=== PATIENT | female | born 1965 | race Caucasian/White ===

== ENCOUNTER → 2017-09-13 | Outpatient (CLI) | payer BC ==
--- NOTE | 2017-09-14 10:44 | MM ---
Reason for exam: screening (asymptomatic). Last mammogram was performed 2 years and 2 months ago. History: Patient is postmenopausal. Family history of breast cancer in aunt at age 60. Taking hormonal contraceptives for 20 years beginning at age 20. Physical Findings: A clinical breast exam by your physician is recommended on an annual basis and results should be correlated with mammographic findings. MG 3D Screening Mammo W/Cad Bilateral CC and MLO view(s) were taken. Prior study comparison: July 23, 2015, bilateral MG screening mammo w CAD. December 22, 2011, bilateral digital screening mammo w/CAD. There are scattered fibroglandular densities. There is no discrete abnormality. No significant changes when compared with prior studies. ASSESSMENT: Negative, BI-RAD 1 RECOMMENDATION: Routine screening mammogram of both breasts in 1 year.
== END | disposition home or self-care (01) ==
LOC: RADMAMWWP 08:19
PROVIDERS: ATTEND Obstetrics & Gynecology Obstetrics
DX: Z12.31 Encounter for screening mammogram for malignant neoplasm of breast (principal)
CPT/HCPCS: 77063; 77067

== ENCOUNTER → 2020-01-30 | Outpatient (CLI) | payer OTHER | END | disposition home or self-care (01) | LOC: LABWHC1 08:51 | PROVIDERS: ATTEND Obstetrics & Gynecology | DX: Z03.818 Encounter for observation for suspected exposure to other biological agents ruled out (principal); U07.1 COVID-19 ==

== ENCOUNTER → 2020-11-24 | Outpatient (CLI) | payer OTHER ==
--- NOTE | 2020-11-25 09:21 | MM ---
Reason for exam: screening (asymptomatic). Last mammogram was performed 3 years and 2 months ago. History: Patient is postmenopausal. Family history of breast cancer in aunt at age 60. Taking hormonal contraceptives for 20 years beginning at age 20. Physical Findings: A clinical breast exam by your physician is recommended on an annual basis and results should be correlated with mammographic findings. MG 3D Screening Mammo W/Cad Bilateral CC and MLO view(s) were taken. Prior study comparison: September 13, 2017, bilateral MG 3d screening mammo w/cad. July 23, 2015, bilateral MG screening mammo w CAD. There are scattered fibroglandular densities. There is no discrete abnormality. No significant changes when compared with prior studies. ASSESSMENT: Negative, BI-RAD 1 RECOMMENDATION: Routine screening mammogram of both breasts in 1 year.
== END | disposition home or self-care (01) ==
LOC: RADMAMWWP 08:29
PROVIDERS: ATTEND Obstetrics & Gynecology
DX: Z12.31 Encounter for screening mammogram for malignant neoplasm of breast (principal); Z78.0 Asymptomatic menopausal state; Z80.3 Family history of malignant neoplasm of breast
CPT/HCPCS: 77063; 77067

== ENCOUNTER 2021-01-08 08:19 | Day surgery (SDC) | payer OTHER ==
[2021-01-06 09:27] VITALS: BMI 35.9
[~2021-01-08 08:19] MED LIST: LACTATED RINGERS 1,000 ML IV SCH
[2021-01-08 08:43] VITALS: RESP 16; TEMP 99
[2021-01-08] MEDS ORDERED: LIDOCAINE 1% (10MG/ML) FOR IV START INTRADERMA ONE (08:52)
[2021-01-08] MEDS ORDERED: PROPOFOL 10 MG/ML 20 ML VIAL IV ONE (08:59)
--- NOTE | 2021-01-08 09:28 | P.PCN ---
Date of Procedure: 01/08/21 Procedure(s) Performed: BRIEF HISTORY: Patient is a 55-year-old pleasant white female scheduled for an elective colonoscopy as a part of screening for colorectal neoplasia. PROCEDURE PERFORMED: Colonoscopy. PREOPERATIVE DIAGNOSIS: Screening for colon cancer. IV sedation per Anesthesia. PROCEDURE: After informed consent was obtained, the patient, was brought into the endoscopy unit. IV sedation was administered by Anesthesia under continuous monitoring. Digital rectal examination was normal. Initially the Olympus CF-160 flexible video colonoscope was then inserted in the rectum, gradually advanced into the cecum without any difficulty. Careful examination was performed as the scope was gradually being withdrawn. Ileocecal valve and the appendiceal orifice were visualized and appeared normal. Prep was fair.. Mucosa of the cecum, ascending colon, transverse colon, descending colon, sigmoid colon, and rectum appeared normal. Scattered sigmoid diverticulosis. Retroflexion was performed in the rectum and no lesions were seen. The patient tolerated the procedure well. IMPRESSION: Normal-appearing colon from rectum to cecum with no evidence of colorectal neoplasia . Scattered sigmoid diverticulosis . RECOMMENDATIONS: Findings of this examination were discussed with the patient a s well as a family. She was advised to have a repeat screening colonoscopy in 10 years.
[2021-01-08 09:49] VITALS: BP 143/69; PULSE 84
== END 2021-01-08 10:02 | disposition home or self-care (01) ==
LOC: ORWHC2ENDO 08:19
PROVIDERS: ATTEND Internal Medicine Gastroenterology
DX: Z12.11 Encounter for screening for malignant neoplasm of colon (principal); K57.30 Diverticulosis of large intestine without perforation or abscess without bleeding; I10 Essential (primary) hypertension; E78.5 Hyperlipidemia, unspecified; Z79.82 Long term (current) use of aspirin; Z79.899 Other long term (current) drug therapy
CPT/HCPCS: J2704; G0121

== ENCOUNTER → 2022-01-12 | Outpatient (CLI) | payer OTHER | END | disposition home or self-care (01) | LOC: LABWHC1 09:13 | PROVIDERS: ATTEND Obstetrics & Gynecology | DX: Z20.822 Contact with and (suspected) exposure to COVID-19 (principal) | CPT/HCPCS: U0003; C9803 ==

== ENCOUNTER → 2022-03-01 | Outpatient (CLI) | payer OTHER ==
--- NOTE | 2022-03-02 07:56 | MM ---
Reason for Exam: Screening (asymptomatic). Last mammogram was performed 1 year(s) and 3 month(s) ago. Patient History: Menarche at age 15. First Full-Term at age 29. Postmenopausal. Hormonal Contraceptives, starting at age 20 for 20 years. Maternal aunt had breast cancer, age 60. Mother had breast cancer, age 79. Risk Values: Deneen 5 year model risk: 2.2%. NCI Lifetime model risk: 15.8%. Prior Study Comparison: 07/23/2015 Bilateral Screening Mammogram, [facility]. 09/13/2017 Bilateral Screening Mammogram, [facility]. 11/24/2020 Bilateral Screening Mammogram, [facility]. Tissue Density: There are scattered fibroglandular densities. Findings: Analyzed By CAD. Benign-appearing bilateral axillary lymph nodes are redemonstrated. Occasional scattered benign-appearing punctate calcification bilaterally are redemonstrated. Asymmetric prominent tissue right breast upper outer aspect is again seen. A few small round scattered masses in both breasts are stable in size from prior. There is no new suspicious group of microcalcifications or new distortion in either breast. Overall Assessment: Benign, BI-RAD 2 Management: Screening Mammogram of both breasts in 1 year. A clinical breast exam by your physician is recommended on an annual basis and results should be correlated with mammographic findings. Electronically signed and approved by: Den Castañeda M.D.
== END | disposition home or self-care (01) ==
LOC: RADMAMWWP 07:45
PROVIDERS: ATTEND Internal Medicine
DX: Z12.31 Encounter for screening mammogram for malignant neoplasm of breast (principal); Z78.0 Asymptomatic menopausal state; Z80.3 Family history of malignant neoplasm of breast
CPT/HCPCS: 77063; 77067

== ENCOUNTER → 2023-04-17 | Outpatient (CLI) | payer BC ==
--- NOTE | 2023-04-19 14:47 | MM ---
Reason for Exam: Screening (asymptomatic). Last mammogram was performed 1 year(s) and 1 month(s) ago. Patient History: Menarche at age 15. First Full-Term at age 29. Postmenopausal. Hormonal Contraceptives, starting at age 20 for 20 years. Maternal aunt had breast cancer, age 60. Mother had breast cancer, age 79. Risk Values: Deneen 5 year model risk: 2.3%. NCI Lifetime model risk: 15.5%. Prior Study Comparison: 09/13/2017 Bilateral Screening Mammogram, [facility]. 11/24/2020 Bilateral Screening Mammogram, [facility]. 03/01/2022 Bilateral MG 3D screening mammo w/cad, [facility]. Tissue Density: There are scattered fibroglandular densities. Findings: Analyzed By CAD. No significant changes when compared with prior studies. No discrete abnormality. Overall Assessment: Negative, BI-RAD 1 Management: Screening Mammogram of both breasts in 1 year. Electronically signed and approved by: Valeriy Mckenzie M.D. Radiologis
== END | disposition home or self-care (01) ==
LOC: RADMAMWWP 16:55
PROVIDERS: ATTEND Internal Medicine
DX: Z12.31 Encounter for screening mammogram for malignant neoplasm of breast (principal); Z78.0 Asymptomatic menopausal state; Z80.3 Family history of malignant neoplasm of breast
CPT/HCPCS: 77063; 77067

== ENCOUNTER → 2024-10-21 | Outpatient (CLI) | payer BC ==
--- NOTE | 2024-10-21 15:14 | US ---
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 Indirect Doppler criteria was utilized. FINDINGS: EXAM MEASUREMENTS: RIGHT: Peak Systolic Velocity (PSV) cm/sec ----- Right CCA: 74.7 ----- Right ICA: 96.0 ----- Right ECA: 106 ICA/CCA ratio: 1.29 RIGHT: End Diastole cm/sec ----- Right CCA: 21.1 ----- Right ICA: 23.0 ----- Right ECA: 16.2 LEFT: Peak Systolic Velocity (PSV) cm/sec ----- Left CCA: 80.6 ----- Left ICA: 91.1 ----- Left ECA: 104 ICA/CCA ratio: 1.1 LEFT: End Diastole cm/sec ----- Left CCA: 28.0 ----- Left ICA: 39.5 ----- Left ECA: 18.1 VERTEBRALS (direction of flow): Right Vertebral: Antegrade Left Vertebral: Antegrade Rhythm: Normal [employer]CIPIT[employer] EQUIPMENT TENDER NOTES: no elevated velocities seen. No plaque seen. Color Doppler imaging shows patency with blood flow throughout the carotid artery. Spectral waveforms are within normal limits. IMPRESSION: No ultrasound evidence for hemodynamically significant stenosis. Criteria for Assigning % of Stenosis / Diameter reduction (Estimation based on the indirect measurements of the internal carotid artery velocities (ICA PSV). 1. Normal (no stenosis)=ICA PSV < 125 cm/s: ratio < 2.0: ICA EDV<40 cm/s. 2. Less than 50% stenosis=ICA PSV < 125 cm/s: ratio < 2.0: ICA EDV<40 cm/s. 3. 50 to 69% stenosis=ICA PSV of 125 to 230 cm/s: ration 2.0 ? 4.0: ICA EDV 40-100 cm/s. 4. Greater than 70% stenosis to near occlusion= ICA PSV > 230 cm/s: ratio > 4.0: ICA EDV > 100 cm/s. 5. Near occlusion= ICA PSV velocities may be low or undetectable: variable ratio and ICA EDV. 6. Total occlusion=unable to detect flow. [facility], , 10/21/2024 3:11 PM
--- NOTE | 2024-10-21 17:34 | CA ---
Transthoracic Echo Report Name: Mahi Bridges Age: 59 Gender: F : 1965 Exam Date: 10/21/2024 14:02 Exam Location: [place] [facility] Ht (in): 61 Wt (lb): 180 Ordering Physician: Josy Person MD Attending/Referring Phys: Josy Person MD [employer]ring Machine Operator Mariana Judd RDCS Procedure CPT: Indications: I25.10 CORONARY ERTERY DISEASE I65.23 BILATEAL CAR Cardiac Hx: Technical Quality: Good Contrast 1: Total Dose (mL): Contrast 2: Total Dose (mL): MEASUREMENTS (Male / Female) Normal Values 2D ECHO LV Diastolic Diameter PLAX 4.7 cm 4.2 - 5.9 / 3.9 - 5.3 cm LV Systolic Diameter PLAX 2.9 cm IVS Diastolic Thickness 1.0 cm 0.6 - 1.0 / 0.6 - 0.9 cm LVPW Diastolic Thickness 1.0 cm 0.6 - 1.0 / 0.6 - 0.9 cm LV Relative Wall Thickness 0.4 RV Internal Dim ED PLAX 3.3 cm LA Systolic Diameter LX 3.2 cm 3.0 - 4.0 / 2.7 - 3.8 cm LV Diastolic Volume MOD BP 66.1 cm??? 67 - 155 / 56 - 104 cm??? LV Systolic Volume MOD BP 25.5 cm??? 22 - 58 / 19 - 49 cm??? LV Ejection Fraction MOD BP 61.4 % >= 55 % LV Cardiac Index MOD BP 1717.4 cm???/min???m??? LV Diastolic Volume MOD 4C 76.4 cm??? LV Systolic Volume MOD 4C 24.0 cm??? LV Ejection Fraction MOD 4C 68.6 % LV Cardiac Index MOD 4C 2223.2 cm???/min???m??? LV Diastolic Length 4C 7.2 cm LV Systolic Length 4C 5.9 cm LV Diastolic Volume MOD 2C 51.5 cm??? LV Systolic Volume MOD 2C 25.7 cm??? LV Ejection Fraction MOD 2C 50.2 % LV Cardiac Index MOD 2C 1097.3 cm???/min???m??? LV Diastolic Length 2C 6.5 cm LV Systolic Length 2C 6.4 cm M-MODE Aortic Root Diameter MM 3.2 cm DOPPLER AV Peak Velocity 166.5 cm/s AV Peak Gradient 11.1 mmHg Mitral E Point Velocity 98.8 cm/s Mitral A Point Velocity 109.6 cm/s Mitral E to A Ratio 0.9 MV Deceleration Time 212.4 ms MV E' Velocity 10.3 cm/s Mitral E to MV E' Ratio 9.6 TR Peak Velocity 202.8 cm/s TR Peak Gradient 16.4 mmHg Right Ventricular Systolic Press 26.7 mmHg FINDINGS Left Ventricle Left ventricular ejection fraction is estimated at 55-60 %. Left ventricular cavity size normal. No obvious regional wall motion abnormalities. Right Ventricle Mild right ventricular dilatation. Right ventricular systolic pressure within normal limits. Right Atrium Normal right atrial size. No right atrial thrombus or mass seen. Left Atrium Normal left atrial size. No left atrial thrombus or mass present. Mitral Valve Structurally normal mitral valve. No evidence for mitral valve prolapse. No mitral stenosis. Mild mitral regurgitation. Aortic Valve Trileaflet aortic valve. No aortic valve stenosis or regurgitation. Tricuspid Valve Structurally normal tricuspid valve. Mild tricuspid regurgitation. Pulmonic Valve Structurally normal pulmonic valve. Trace pulmonic regurgitation. Pericardium No pericardial or pleural effusion. Aorta Normal size aortic root and proximal ascending aorta. CONCLUSIONS 1. Normal left ventricular size and systolic function 2. Mild mitral and tricuspid regurgitation with no evidence of pulmonary hypertension Previewed by: Dr. Estefani Crain MD (Electronically Signed) Final Date: 21 October 2024 17:33
== END | disposition home or self-care (01) ==
LOC: RADECHMAIN 13:54
PROVIDERS: ATTEND Internal Medicine
DX: I25.10 Atherosclerotic heart disease of native coronary artery without angina pectoris (principal); I65.23 Occlusion and stenosis of bilateral carotid arteries; I08.1 Rheumatic disorders of both mitral and tricuspid valves
CPT/HCPCS: 93306; 93880

== ENCOUNTER → 2024-10-23 | Outpatient (CLI) | payer BC ==
--- NOTE | 2024-10-23 15:01 | MM ---
Reason for Exam: Screening (asymptomatic). Last mammogram was performed 1 year(s) and 7 month(s) ago. Patient History: Menarche at age 15. First Full-Term at age 29. Postmenopausal. Hormonal Contraceptives, starting at age 20 for 20 years. Maternal aunt had breast cancer, age 60. Mother had breast cancer, age 79. Risk Values: Deneen 5 year model risk: 2.5%. NCI Lifetime model risk: 14.9%. Prior Study Comparison: 11/24/2020 Bilateral Screening Mammogram, [facility]. 03/01/2022 Bilateral MG 3D screening mammo w/cad, [facility]. 04/17/2023 Bilateral MG 3D screening mammo w/cad, [facility]. Tissue Density: There are scattered areas of fibroglandular density. Findings: Analyzed By CAD. There is no suspicious group of microcalcifications or new suspicious mass in either breast. Overall Assessment: Negative, BI-RAD 1 Management: Screening Mammogram of both breasts in 1 year. Patient should continue monthly self-breast exams. A clinical breast exam by your physician is recommended on an annual basis. This exam should not preclude additional follow-up of suspicious palpable abnormalities. Note on Deneen scores and lifetime risk: 1. A Deneen score greater than 3% is considered moderate risk. If this is the case, consider specialist referral to assess eligibility for a risk reducing agent. 2. If overall lifetime risk for the development of breast cancer is 20% or higher, the patient may qualify for future screening with alternating mammogram and breast MRI. [facility], , 10/23/2024 2:58 PM. Electronically signed and approved by: Eligio Eric M.D. Radiologist
== END | disposition home or self-care (01) ==
LOC: RADMAMWWP 09:01
PROVIDERS: ATTEND Obstetrics & Gynecology
DX: Z12.31 Encounter for screening mammogram for malignant neoplasm of breast (principal); R92.323 Mammographic fibroglandular density, bilateral breasts; Z78.0 Asymptomatic menopausal state; Z80.3 Family history of malignant neoplasm of breast
CPT/HCPCS: 77063; 77067